=== PATIENT | female | born 1935 | race Caucasian/White ===

== ENCOUNTER 2018-09-07 01:33 | Emergency (ER) | payer MEDICARE ==
[2018-09-07 02:34] LABS: ABSOLUTE EOSINOPHILS # (AUTO) 0.1 10^3/uL (0.0-0.6); ABSOLUTE LYMPHOCYTES (AUTO) 1.4 10^3/uL (0.5-4.7); ABSOLUTE MONOCYTES (AUTO) 0.6 10^3/uL (0.1-1.4); ABSOLUTE NEUT (AUTO) 4.7 10^3/uL (1.7-8.2); BASOPHILS % (AUTO) 0.5 % (0-2); EOSINOPHILS % (AUTO) 1.7 % (0-6); HEMATOCRIT 38.2 % (36.0-47.0); HEMOGLOBIN 12.9 g/dL (12.0-15.5); LYMPHOCYTES % (AUTO) 20.4 % (13-45); MEAN CORPUSCULAR HEMOGLOBIN 32.5 pg (27.0-33.4); MEAN CORPUSCULAR HGB CONC 33.8 g/dL (32.0-36.0); MEAN CORPUSCULAR VOLUME 96 fl (80-97); MONOCYTES % (AUTO) 9.1 % (3-13); PLATELET COUNT 171 10^3/uL (150-450); RED BLOOD COUNT 3.98 10^6/uL (3.72-5.28); RED CELL DISTRIBUTION WIDTH 15.3 % (11.5-14.0); SEGMENTED NEUTROPHILS % (AUTO) 68.3 % (42-78); TOTAL CELLS COUNTED % (AUTO) 100 %; WHITE BLOOD COUNT 6.9 10^3/uL (4.0-10.5)
[2018-09-07 02:51] LABS: ALANINE AMINOTRANSFERASE 31 U/L (9-52); ALKALINE PHOSPHATASE 102 U/L (38-126); ANION GAP 11 (5-19); ASPARTATE AMINO TRANSFERASE 43 U/L (14-36); BILIRUBIN,DIRECT 0.3 mg/dL (0.0-0.4); BILIRUBIN,TOTAL 0.6 mg/dL (0.2-1.3); BLOOD UREA NITROGEN 25 mg/dL (7-20); CALCIUM 9.5 mg/dL (8.4-10.2); CARBON DIOXIDE 29 mmol/L (22-30); CHLORIDE 102 mmol/L (98-107); CREATINE KINASE 26 U/L (30-135); GLUCOSE 164 mg/dL (75-110); POTASSIUM 4.5 mmol/L (3.6-5.0); SODIUM 141.8 mmol/L (137-145); TOTAL PROTEIN 6.8 g/dL (6.3-8.2)
[2018-09-07 03:03] LABS: CREATINE KINASE MB 0.91 ng/mL (<4.55)
--- NOTE | 2018-09-07 03:03 | RADIOLOGY REPORT (SQ) ---
EXAM DESCRIPTION: XR CHEST 1 VIEW COMPLETED DATE/TME: 09/07/2018 02:27 CLINICAL HISTORY: 83 years, Female, pain along left chest wall COMPARISON: None. NUMBER OF VIEWS: 1 TECHNIQUE: Upright portable chest LIMITATIONS: None. FINDINGS: The heart size is normal. Atheromatous change thoracic aorta. Osteopenia. Calcified granuloma left upper lobe. Minor scarring left lung base. Lungs are otherwise clear. IMPRESSION: No acute cardiopulmonary process 2010 [employer] [facility] [employer]- All Rights Reserved
[2018-09-07 03:04] LABS: TROPONIN I < 0.012 ng/mL
--- NOTE | 2018-09-07 05:00 | ER Document Report ---
ED General - General Chief Complaint: Chest Pain Stated Complaint: ARM PAIN Time Seen by Provider: 09/07/18 02:11 Mode of Arrival: Wheelchair Information source: Patient, Relative TRAVEL OUTSIDE OF THE U.S. IN LAST 30 DAYS: No - HPI Patient complains to provider of: Shoulder pain Onset: Other - This 83-year-old female presents for evaluation of atraumatic left shoulder pain which began last night while at home. She notes that initially it hurt it on the outside of the shoulder and then moved up the back side of the shoulder towards the neck briefly since it has totally resolved without any intervention. She denies any fevers or chills trauma or injury preceding the event. She is never had anything like this in the past. Denies any history of heart attacks in the past. Denies any chest pain shortness of breath or palpitations. - Related Data Allergies/Adverse Reactions: ciprofloxacin [From Cipro] Allergy (Verified 09/07/18 01:37) codeine Allergy (Verified 09/07/18 01:37) levofloxacin [From Levaquin] Allergy (Verified 09/07/18 01:37) meperidine [From Demerol] Allergy (Verified 09/07/18 01:37) sulfamethoxazole [From Bactrim] Allergy (Verified 09/07/18 01:37) trimethoprim [From Bactrim] Allergy (Verified 09/07/18 01:37) Past Medical History - General Information source: Patient, Relative - Social History Smoking Status: Never Smoker Family History: None Patient has suicidal ideation: No Patient has homicidal ideation: No Renal/ Medical History: Denies: Hx Peritoneal Dialysis Review of Systems - Review of Systems -: Yes All other systems reviewed and negative Physical Exam - Vital signs Vitals: Resp Pulse Ox 17 93 09/07/18 02:12 09/07/18 02:12 - General General appearance: Appears well In distress: None - HEENT Head: Normocephalic Eyes: Normal Conjunctiva: Normal Cornea: Normal Extraocular movements intact: Yes Eyelashes: Normal Pupils: PERRL - Respiratory Respiratory status: No respiratory distress Chest status: Nontender Breath sounds: Normal Chest palpation: Normal - Cardiovascular Rhythm: Regular Heart sounds: Normal auscultation Murmur: No - Abdominal Inspection: Normal Distension: No distension Tenderness: Nontender - Back Back: Normal - Extremities General upper extremity: Normal inspection, Nontender, Normal ROM, Normal strength General lower extremity: Normal inspection, Nontender, Normal ROM, Normal strength - Neurological Neuro grossly intact: Yes Cognition: Normal Orientation: AAOx4 Percy Coma Scale Eye Opening: Spontaneous Colette Coma Scale Verbal: Oriented Colette Coma Scale Motor: Obeys Commands Percy Coma Scale Total: 15 Speech: Normal Cranial nerves: Normal Cerebellar coordination: Normal Motor strength normal: LUE, RUE, LLE, RLE - Psychological Associated symptoms: Normal affect Course - Re-evaluation Re-evalutation: 09/07/18 04:59 83-year-old female with a brief episode of left shoulder pain which spontaneously resolved yesterday. Currently she has no complaints and feels generally well. Her EKG through triage demonstrates that she has a sinus rhythm, left axis deviation with Q waves through the chest leads and poor R wave progression though there is nothing acute. We will obtain troponin x2 cardiac markers chest x-ray. We will continue to monitor in emergency department and reassess as necessary. 09/07/18 05:59 Patient pain-free with unremarkable workup, 2- troponins, unremarkable chest x- ray. You likely she was having arthritis type pain. Because of her well appearance no pain at this time and reassuring history believe she is likely safe for discharge home in the care of her daughter. We will plan for discharge home in the care of her daughter with return precautions and encouraged follow-up this week with her primary physician in the use of Tylenol as needed for shoulder pain. - Vital Signs Vital signs: Temp Pulse Resp BP Pulse Ox 16 131/57 H 91 L 09/07/18 05:02 09/07/18 05:02 09/07/18 05:02 - Laboratory Result Diagrams: 09/07/18 02:30 09/07/18 02:30 Laboratory results interpreted by me: 09/07/18 09/07/18 02:30 02:30 RDW 15.3 H BUN 25 H Est GFR (Non-Af Amer) 56 L Glucose 164 H AST 43 H Creatine Kinase 26 L Discharge - Discharge Clinical Impression: Shoulder pain, left Qualifiers: Chronicity: acute Qualified Code(s): M25.512 - Pain in left shoulder Condition: Good Disposition: HOME, SELF-CARE Instructions: Arthritis ([facility]) Additional Instructions: You were seen today in the emergency department for your shoulder pain. YOu had evaluation including electrolytes, chest x-ray, markers for damage to your heart. No cause for the pain in her shoulder was identified. It is likely this is related to your arthritis. Use Tylenol as necessary to help with your shoulder pain. Return to the emergency room in case of any worsening pain in your chest, shortness of breath, lightheadedness or other worsening symptoms otherwise follow-up with your primary physician this week for ongoing management. Referrals: LUCILLE MONTERROSO MD [Primary Care Provider] - Follow up as needed
[2018-09-07 06:32] VITALS: BP 109/86
--- NOTE | 2018-09-07 10:53 | EKG REPORT ---
SEVERITY:- ABNORMAL ECG - SINUS RHYTHM LEFT AXIS DEVIATION CONSIDER ANTEROSEPTAL INFARCT NON SPECIFIC IVCD : Confirmed by: Clinton Chang 07-Sep-2018 10:52:24
== END 2018-09-07 06:37 | disposition home or self-care (01) ==
LOC: ER 01:33
DX: M25.512 Pain in left shoulder (principal); Z88.1 Allergy status to other antibiotic agents; Z88.5 Allergy status to narcotic agent
CPT/HCPCS: 36415; 71045; 80053; 82550; 82553; 84484; 85025; 93005; 93010; 99285

== ENCOUNTER 2018-11-18 15:39 | Emergency (ER) | payer MEDICARE ==
--- NOTE | 2018-11-18 16:16 | ER Document Report ---
ED Medical Screen (RME) - General Chief Complaint: Abdominal Pain Stated Complaint: ABDOMINAL PAIN,NAUSEA,VOMITING Time Seen by Provider: 11/18/18 16:10 Primary Care Provider: LUCILLE MONTERROSO MD [Primary Care Provider] - Follow up as needed TRAVEL OUTSIDE OF THE U.S. IN LAST 30 DAYS: No - HPI Patient complains to provider of: Abdominal pain with nausea and vomiting Notes: 11/18/18 16:15 Patient is an 83-year-old female presenting to the emergency room via EMS for complaints of abdominal pain in the upper abdomen with nausea and vomiting that began approximately 6 hours prior to arrival, patient received Zofran in route and is not actively vomiting at this time RAPID MEDICAL EVALUATION DISCLOSURE I have seen this patient as part of a Rapid Medical Evaluation and, if applicable, placed any initially appropriate orders. The patient will be seen and fully evaluated, including a full history and physical exam, by a provider (in Main ED or Fast Track) when a room becomes available. - Related Data Allergies/Adverse Reactions: ciprofloxacin [From Cipro] Allergy (Verified 09/07/18 01:37) codeine Allergy (Verified 09/07/18 01:37) levofloxacin [From Levaquin] Allergy (Verified 09/07/18 01:37) meperidine [From Demerol] Allergy (Verified 09/07/18 01:37) sulfamethoxazole [From Bactrim] Allergy (Verified 09/07/18 01:37) trimethoprim [From Bactrim] Allergy (Verified 09/07/18 01:37) Past Medical History Renal/ Medical History: Denies: Hx Peritoneal Dialysis Physical Exam - Vital signs Vitals: Temp Pulse Resp BP Pulse Ox 97.6 F 58 L 16 109/69 94 11/18/18 15:50 11/18/18 15:50 11/18/18 15:50 11/18/18 15:50 11/18/18 15:50 Course - Vital Signs Vital signs: Temp Pulse Resp BP Pulse Ox 97.6 F 58 L 16 109/69 94 11/18/18 15:50 11/18/18 15:50 11/18/18 15:50 11/18/18 15:50 11/18/18 15:50 Doctor's Discharge - Discharge Referrals: LUCILLE MONTERROSO MD [Primary Care Provider] - Follow up as needed
[2018-11-18] MEDS ORDERED: METOCLOPRAMIDE HCL INJ/PF 10 MG/2 ML SDV IV ONE (16:29)
[2018-11-18 17:25] LABS: ABSOLUTE MONOCYTES (AUTO) 0.4 10^3/uL (0.1-1.4); BASOPHILS % (AUTO) 0.3 % (0-2); EOSINOPHILS % (AUTO) 0.1 % (0-6); HEMATOCRIT 37.5 % (36.0-47.0); HEMOGLOBIN 12.5 g/dL (12.0-15.5); LYMPHOCYTES % (AUTO) 8.2 % (13-45); MEAN CORPUSCULAR HGB CONC 33.2 g/dL (32.0-36.0); MEAN CORPUSCULAR VOLUME 99 fl (80-97); MONOCYTES % (AUTO) 2.8 % (3-13); PLATELET COUNT 210 10^3/uL (150-450); RED BLOOD COUNT 3.79 10^6/uL (3.72-5.28); RED CELL DISTRIBUTION WIDTH 14.3 % (11.5-14.0); SEGMENTED NEUTROPHILS % (AUTO) 88.6 % (42-78); TOTAL CELLS COUNTED % (AUTO) 100 %; WHITE BLOOD COUNT 12.4 10^3/uL (4.0-10.5)
[2018-11-18] MEDS ORDERED: NORMAL SALINE 1000 ML 1,000 ML IV ONE ×2 (18:30→23:46)
[2018-11-18] MEDS ORDERED: FENTANYL CITRATE INJ/PF 100 MCG/2 ML AMPUL IV ONE (18:30)
[2018-11-18 18:33] LABS: AMORPHOUS SEDIMENT,URINE TRACE /HPF; APPEARANCE,URINE TURBID; BILIRUBIN,URINE NEGATIVE (NEGATIVE); COLOR,URINE AMBER; GLUCOSE, URINE NEGATIVE (NEGATIVE); KETONES,URINE TRACE mg/dL (NEGATIVE); LEUKOCYTE ESTERASE,URINE NEGATIVE (NEGATIVE); NITRITE,URINE NEGATIVE (NEGATIVE); PROTEIN,URINE 100 mg/dL (NEGATIVE); URINE SPECIFIC GRAVITY 1.018
[2018-11-18 18:48] LABS: ALANINE AMINOTRANSFERASE 208 U/L (9-52); ALBUMIN 4.4 g/dL (3.5-5.0); ALKALINE PHOSPHATASE 151 U/L (38-126); ANION GAP 13 (5-19); ASPARTATE AMINO TRANSFERASE 525 U/L (14-36); BILIRUBIN,DIRECT 1.9 mg/dL (0.0-0.4); BILIRUBIN,TOTAL 2.5 mg/dL (0.2-1.3); BLOOD UREA NITROGEN 25 mg/dL (7-20); CALCIUM 9.6 mg/dL (8.4-10.2); CARBON DIOXIDE 29 mmol/L (22-30); CHLORIDE 101 mmol/L (98-107); GLUCOSE 242 mg/dL (75-110); LIPASE 105.5 U/L (23-300); POTASSIUM 4.6 mmol/L (3.6-5.0); SODIUM 142.6 mmol/L (137-145); TOTAL PROTEIN 7.2 g/dL (6.3-8.2)
[2018-11-18 19:33] LABS: VENOUS BLOOD BASE EXCESS -0.4 mmol/L; VENOUS BLOOD HCO3 25.9 mmol/L (20-32); VENOUS BLOOD PCO2 49.2 mmHg (35-63); VENOUS BLOOD PH 7.34 (7.30-7.42)
--- NOTE | 2018-11-18 20:22 | RADIOLOGY REPORT (SQ) ---
CT ABDOMEN PELVIS WITH IV CONTRAST HISTORY: Lower abdominal pain. COMPARISON: None. TECHNIQUE: CT scan of the abdomen and pelvis with IV contrast. This exam was performed according to our departmental dose-optimization program, which includes automated exposure control, adjustment of the mA and/or kV according to patient size and/or use of iterative reconstruction technique. FINDINGS: There are scattered atelectasis at the lung bases. No pleural or pericardial effusions are seen. Prior cholecystectomy with moderate CBD dilation. There is also intrahepatic ductal dilatation. Otherwise the liver, spleen, pancreas, adrenal glands, and kidneys are unremarkable. Simple renal cysts are seen in both kidneys. No obstructing urinary stones or hydronephrosis. The pelvic organs are also unremarkable. No small bowel obstruction. The appendix is normal. There are scattered colonic diverticula without surrounding inflammatory changes. No intraperitoneal free fluid or free air is seen. The aorta is normal caliber and contains atherosclerotic calcifications. There are mild degenerative changes of the spine. No body wall hernia is seen. IMPRESSION: 1. Normal appendix. 2. Diverticulosis without inflammatory changes.
[2018-11-18] MEDS ORDERED: PIPERACILLIN/TAZOBACTAM 3.375 GM VIAL IV ONE (20:36)
[2018-11-18] MEDS ORDERED: HYDROMORPHONE HCL INJ/PF 2 MG/ML AMPULE IV ONE (21:08)
--- NOTE | 2018-11-19 00:21 | RADIOLOGY REPORT (SQ) ---
US ABDOMEN LIMITED HISTORY: Right upper quadrant pain. COMPARISON: None. TECHNIQUE: Grayscale and color Doppler imaging of the right upper quadrant was performed. FINDINGS: The liver has normal echotexture without focal lesion identified. The main portal vein has normal hepatopetal flow. There has been a prior cholecystectomy. CBD is dilated measuring 1.5 cm which is likely postsurgical sequela. The pancreas is unremarkable. No hydronephrosis or shadowing renal stones are identified. The right kidney measures 8.6 cm in length. The visualized portions of the IVC and aorta are patent. IMPRESSION: Prior cholecystectomy with dilated CBD which is likely postsurgical sequela. No echogenic stones are seen in the CBD although if there is high clinical concern, MRCP may be performed.
--- NOTE | 2018-11-19 00:51 | ER Document Report ---
ED General - General Chief Complaint: Abdominal Pain Stated Complaint: ABDOMINAL PAIN,NAUSEA,VOMITING Time Seen by Provider: 11/18/18 16:10 Primary Care Provider: LUCILLE MONTERROSO MD [Primary Care Provider] - Follow up as needed Mode of Arrival: Medic Information source: Patient, Relative, Emergency Med Personnel TRAVEL OUTSIDE OF THE [place] IN LAST 30 DAYS: No - HPI Patient complains to provider of: pain and nausea Onset: Other - This 83-year-old female with a history of chill fibrillation as well as hypertension that presents for evaluation of abdominal pain, low back pain and persistent nausea which started today while she was at home. Nothing seemed to make her symptoms any better, time seems to be making them worse. She is not take anything to try and help with it. She is never had anything like this in the past. - Related Data Allergies/Adverse Reactions: ciprofloxacin [From Cipro] Allergy (Verified 11/18/18 19:04) codeine Allergy (Verified 11/18/18 19:04) levofloxacin [From Levaquin] Allergy (Verified 11/18/18 19:04) meperidine [From Demerol] Allergy (Verified 11/18/18 19:04) sulfamethoxazole [From Bactrim] Allergy (Verified 11/18/18 19:04) trimethoprim [From Bactrim] Allergy (Verified 11/18/18 19:04) Past Medical History - General Information source: Patient, Relative - Social History Smoking Status: Never Smoker Chew tobacco use (# tins/day): No Frequency of alcohol use: hx of alcoholism Drug Abuse: None Family History: None Patient has suicidal ideation: No Patient has homicidal ideation: No Endocrine Medical History: Reports: Hx Diabetes Mellitus Type 2 Renal/ Medical History: Denies: Hx Peritoneal Dialysis Review of Systems - Review of Systems -: Yes All other systems reviewed and negative Physical Exam - Vital signs Vitals: Temp Pulse Resp BP Pulse Ox 97.6 F 58 L 16 109/69 94 11/18/18 15:50 11/18/18 15:50 11/18/18 15:50 11/18/18 15:50 11/18/18 15:50 - General General appearance: Anxious, Lethargic In distress: Mild - HEENT Head: Normocephalic Eyes: Normal Conjunctiva: Normal Cornea: Normal Extraocular movements intact: Yes Eyelashes: Normal Pupils: PERRL - Respiratory Respiratory status: No respiratory distress Chest status: Nontender Breath sounds: Normal Chest palpation: Normal - Cardiovascular Rhythm: Regular Heart sounds: Normal auscultation - Abdominal Inspection: Obese Distension: Distended Tenderness: Tender - Back Back: Normal - Extremities General upper extremity: Normal inspection, Nontender, Normal ROM, Normal streng th General lower extremity: Normal inspection, Nontender, Normal ROM, Normal strength - Neurological Neuro grossly intact: Yes Cognition: Normal Orientation: AAOx4 Colette Coma Scale Eye Opening: Spontaneous Colette Coma Scale Verbal: Oriented Colette Coma Scale Motor: Obeys Commands [place] Coma Scale Total: 15 Speech: Normal Cranial nerves: Normal Motor strength normal: LUE, RUE, LLE, RLE Course - Re-evaluation Re-evalutation: 83-year-old female presents for evaluation of abdominal pain nausea and back pain. Initial presentation she appeared in moderate distress, she was ashen, diaphoretic. Broad workup was undertaken for potential underlying septic source, urine was obtained with a straight cath almost immediately, on initial evaluation of the urine appeared profoundly contaminated, it appeared in similar color to apple cider. A brief bedside ultrasound was performed to assess this patient's potential for urine retention which was negative. The patient's initial lab demonstrated leukocytosis with a new hyperbilirubinemia. Given her previous history of a cholecystectomy had a concern for potential underlying abdominal injury accounting for her elevated lactate. Initiated fluid resuscitation for this patient. Administered Zosyn for this patient. Patient underwent CT imaging of the abdomen and pelvis, CT imaging of the abd omen and pelvis demonstrated that this patient had what appears to be elevated and dilated common bile duct. Her lipase is normal at this time while her transaminases are elevated. Because of the concern for potential stone in the common bile duct obtain an ultrasound. Ultrasound of this patient's common bile duct demonstrated what appeared to be dilation 1.5 cm. I repeated her liver function tests given that she had been in the hospital now for approximately 6 hours. Her bilirubin continued to be elevated. Contacted the on-call back tender pulp drier Dr. WILLIAM ERVIN who notes that he is unable to perform an ERCP and he is concerned that she has a retained stone with an obstructive pattern. Because the concern for this patient's potential obstruction stone contacted [facility] in [place], they note that they are on full diversion at this time. Contacted [facility] in [place], they note that they are on full medical diversion at this time. Contacted [facility] they note that they are currently able to accept patients, contacted the hospitalist Dr. Bermudez that agrees to accept this patient in transport. At the time of transport this patient remained hemodynamically stable. - Vital Signs Vital signs: Temp Pulse Resp BP Pulse Ox 97.6 F 58 L 20 106/53 L 92 11/18/18 15:50 11/18/18 15:50 11/19/18 02:30 11/19/18 02:30 11/19/18 02:30 - Laboratory Result Diagrams: 11/18/18 16:47 11/19/18 00:49 Laboratory results interpreted by me: 11/18/18 11/18/18 11/18/18 16:47 18:05 18:20 WBC 12.4 H MCV 99 H RDW 14.3 H Seg Neutrophils % 88.6 H Lymphocytes % 8.2 L Monocytes % 2.8 L Absolute Neutrophils 11.0 H BUN 25 H Glucose 242 H Lactic Acid Total Bilirubin 2.5 H Direct Bilirubin 1.9 H AST 525 H ALT 208 H Alkaline Phosphatase 151 H Total Protein Albumin Urine Protein 100 H Urine Ketones TRACE H Urine Blood MODERATE H Urine Urobilinogen 4.0 H Urine Ascorbic Acid 40 H 11/18/18 11/18/18 11/19/18 19:15 20:49 00:49 WBC MCV RDW Seg Neutrophils % Lymphocytes % Monocytes % Absolute Neutrophils BUN 22 H Glucose 160 H Lactic Acid 4.1 H 4.0 H Total Bilirubin 2.8 H Direct Bilirubin 2.2 H AST 407 H ALT 237 H Alkaline Phosphatase Total Protein 5.3 L Albumin 3.1 L Urine Protein Urine Ketones Urine Blood Urine Urobilinogen Urine Ascorbic Acid Discharge - Discharge Clinical Impression: Hyperbilirubinemia, Common bile duct dilatation Abdominal pain Qualifiers: Abdominal location: unspecified location Qualified Code(s): R10.9 - Unspecified abdominal pain Back pain Qualifiers: Back pain location: low back pain Chronicity: unspecified Back pain laterality: unspecified Sciatica presence: unspecified whether sciatica present Qualified Code(s): M54.5 - Low back pain Condition: Stable Disposition: [facility] Referrals: LUCILLE MONTERROSO MD [Primary Care Provider] - Follow up as needed
[2018-11-19 01:15] LABS: ALANINE AMINOTRANSFERASE 237 U/L (9-52); ALBUMIN 3.1 g/dL (3.5-5.0); ALKALINE PHOSPHATASE 113 U/L (38-126); ANION GAP 6 (5-19); ASPARTATE AMINO TRANSFERASE 407 U/L (14-36); BILIRUBIN,DIRECT 2.2 mg/dL (0.0-0.4); BILIRUBIN,TOTAL 2.8 mg/dL (0.2-1.3); BLOOD UREA NITROGEN 22 mg/dL (7-20); CALCIUM 8.6 mg/dL (8.4-10.2); CARBON DIOXIDE 29 mmol/L (22-30); CHLORIDE 105 mmol/L (98-107); GLUCOSE 160 mg/dL (75-110); TOTAL PROTEIN 5.3 g/dL (6.3-8.2)
[2018-11-19 01:58] VITALS: BP 106/53
--- NOTE | 2018-11-19 08:11 | EKG REPORT ---
SEVERITY:- ABNORMAL ECG - ATRIAL FIBRILLATION, V-RATE 72-79 NONSPECIFIC INTRAVENTRICULAR CONDUCTION DELAY POOR R WAVE PROGRESSION ANTERIOR LEADS : Confirmed by: Dago Vang MD 19-Nov-2018 08:11:29
== END 2018-11-19 03:07 | disposition short-term general hospital (02) ==
LOC: ER 15:39
DX: E80.6 Other disorders of bilirubin metabolism (principal); K83.8 Other specified diseases of biliary tract; R10.9 Unspecified abdominal pain; M54.5 Low back pain; R11.0 Nausea; E11.9 Type 2 diabetes mellitus without complications; Z88.3 Allergy status to other anti-infective agents; Z88.6 Allergy status to analgesic agent
CPT/HCPCS: 93005; 99285; 96361; 96375; 96365; 36415; 87040; 87086; 83605 ×2; 83690; 85025; 87077; 87088; 80053; 81001; 84484; 87186; 82803; 76705; 74177; 93010; J3010; J2765; J1170; J7030; J2543

== ENCOUNTER 2018-11-29 17:12 | Emergency (ER) | payer MEDICARE ==
[2018-11-29] MEDS ORDERED: VALACYCLOVIR HCL 500 MG TABLET PO ONE (19:12)
--- NOTE | 2018-11-29 19:12 | ER Document Report ---
ED General - General Chief Complaint: Abdominal Pain Stated Complaint: POSSIBLE ALLERIGIC REACTION Time Seen by Provider: 11/29/18 19:05 Primary Care Provider: LUCILLE MONTERROSO MD [Primary Care Provider] - Follow up as needed Mode of Arrival: Wheelchair Information source: Patient Notes: 83-year-old female presents emergency department with complaints of a rash on her abdomen. Pain. Daughter saw a rash to the area. She states that some areas have blisters others are more of a scab sensation. She states that the patient just was discharged from the hospital 2 weeks ago after having a bile duct stent placed. Patient denies any fever, chills, nausea, vomiting, diarrhea, constipation. TRAVEL OUTSIDE OF THE U[place] IN LAST 30 DAYS: No - HPI Onset: This morning Onset/Duration: Constant Quality of pain: Burning Severity: Mild Associated symptoms: None Exacerbated by: Denies Relieved by: Denies Similar symptoms previously: No Recently seen / treated by doctor: No - Related Data Allergies/Adverse Reactions: codeine Allergy (Mild, Verified 11/29/18 19:07) ciprofloxacin [From Cipro] Allergy (Verified 11/29/18 19:07) levofloxacin [From Levaquin] Allergy (Verified 11/29/18 19:07) meperidine [From Demerol] Allergy (Verified 11/29/18 19:07) sulfamethoxazole [From Bactrim] Allergy (Verified 11/29/18 19:07) trimethoprim [From Bactrim] Allergy (Verified 11/29/18 19:07) Past Medical History - General Information source: Patient - Social History Smoking Status: Former Smoker Chew tobacco use (# tins/day): No Frequency of alcohol use: None Drug Abuse: None Family History: None Patient has suicidal ideation: No Patient has homicidal ideation: No - Past Medical History Cardiac Medical History: Reports: Hx Atrial Fibrillation, Hx Hypercholeste rolemia, Hx Hypertension Endocrine Medical History: Reports: Hx Diabetes Mellitus Type 2 Renal/ Medical History: Denies: Hx Peritoneal Dialysis Past Surgical History: Reports: Hx Abdominal Surgery - gallstones removed from bile duct, Hx Cholecystectomy, Hx Hysterectomy, Hx Orthopedic Surgery - tumor removed from left shoulder/neck area Review of Systems - Review of Systems Constitutional: No symptoms reported EENT: No symptoms reported Cardiovascular: No symptoms reported Respiratory: No symptoms reported Gastrointestinal: No symptoms reported Genitourinary: No symptoms reported Female Genitourinary: No symptoms reported Musculoskeletal: No symptoms reported Skin: Change in color, Lesions Hematologic/Lymphatic: No symptoms reported Neurological/Psychological: No symptoms reported -: Yes All other systems reviewed and negative Physical Exam - Vital signs Vitals: Temp Pulse Resp BP Pulse Ox 97.7 F 69 24 H 139/49 H 95 11/29/18 17:45 11/29/18 17:45 11/29/18 17:45 11/29/18 17:45 11/29/18 17:45 - Notes Notes: PHYSICAL EXAMINATION: GENERAL: Well-appearing, well-nourished and in no acute distress. HEAD: Atraumatic, normocephalic. EYES: Pupils equal round and reactive to light, extraocular movements intact, conjunctiva are normal. ENT: Nares patent, oropharynx clear without exudates. Moist mucous membranes. NECK: Normal range of motion, supple without lymphadenopathy LUNGS: Breath sounds clear to auscultation bilaterally and equal. No wheezes rales or rhonchi. HEART: Regular rate and rhythm without murmurs ABDOMEN: Soft, nontender, nondistended abdomen. No guarding, no rebound. No masses appreciated. Female : deferred Musculoskeletal: Normal range of motion, no pitting or edema. No cyanosis. NEUROLOGICAL: Cranial nerves grossly intact. Normal speech, normal gait. Normal sensory, motor exams PSYCH: Normal mood, normal affect. SKIN: Warm, dry, fluid filled vesicles in a linear pattern following a dermatome inthe RLQ. Does not cross midline. Course - Vital Signs Vital signs: Temp Pulse Resp BP Pulse Ox 97.7 F 69 24 H 139/49 H 95 11/29/18 17:45 11/29/18 17:45 11/29/18 17:45 11/29/18 17:45 11/29/18 17:45 Discharge - Discharge Clinical Impression: Shingles Qualifiers: Herpes zoster complications: without complications Qualified Code(s): B02.9 - Zoster without complications Condition: Good Disposition: HOME, SELF-CARE Instructions: Shingles ([facility]) Prescriptions: Valacyclovir HCl [Valtrex 500 Mg Tablet] 1,000 mg PO TID #21 tablet Referrals: LUCILLE MONTERROSO MD [Primary Care Provider] - Follow up as needed
[2018-11-29 19:28] VITALS: BP 140/62
== END 2018-11-29 19:26 | disposition home or self-care (01) ==
LOC: ER 17:12
DX: B02.9 Zoster without complications (principal); R10.9 Unspecified abdominal pain; R21 Rash and other nonspecific skin eruption; Z87.891 Personal history of nicotine dependence; I10 Essential (primary) hypertension; E11.9 Type 2 diabetes mellitus without complications
CPT/HCPCS: 99283; A9270

== ENCOUNTER 2019-05-14 06:45 | Day surgery (SDC) | payer MEDICARE ==
[~2019-05-14 06:45] MED LIST: KETOROLAC TROMETHAMINE 0.45% 4 DROP/0.4 ML DROPERETTE OD PRN
[2019-05-14] MEDS: TETRACAINE HCL 0.5% OPH SOLN 4 ML OD PRN ×4 (07:06→07:49)
[2019-05-14] MEDS: TROPICAMIDE 1% OPH SOLN 3 ML OD PRN ×3 (07:07→07:32)
[2019-05-14] MEDS: CYCLOPENTOLATE 0.2%/PHENYLEPHRINE 1% OPH SOLN 2 ML OD PRN ×3 (07:07→07:32)
[2019-05-14] MEDS: BESIFLOXACIN HCL 0.6% OPH SUSP 5 ML BOTTLE OD PRN ×4 (07:07→08:11)
[2019-05-14] MEDS ORDERED: MIDAZOLAM 2 MG/2 ML INJ ONE (07:52)
[2019-05-14] MEDS: LIDOCAINE 1%/PHENYLEPHRINE 1.5% 1 ML VIAL ONE ×2 (08:00)
[2019-05-14] MEDS: EPINEPHRINE INJ/PF 1 MG/1 ML AMPULE ONE ×2 (08:00)
[2019-05-14] MEDS: CHONDR SU A NA/HYALUR INTRAOC KIT (SURGICARE) ONE ×2 (08:11)
[2019-05-14] MEDS: DORZOLAMIDE HCL 2%/TIMOLOL MALEAT 0.5% OPH SOLN 10 ML OD PRN ×2 (08:11)
--- NOTE | 2019-05-14 22:26 | [facility] OPERATIVE REPORT E ---
[facility] Operative Report NAME: MARVIN LAGUNA AGE: 83Y DATE OF SURGERY: 05/14/2019 ROOM: PREOPERATIVE DIAGNOSIS: CATARACT, RIGHT EYE. POSTOPERATIVE DIAGNOSIS: CATARACT, RIGHT EYE. OPERATION: Cataract extraction with insertion of an IOL of the right eye. SURGEON: DEREK PETERSON M.D. ANESTHESIA: Topical. PROCEDURE: After obtaining appropriate consent, the patient's right eye was prepped and draped in sterile fashion as well as the surgeon in a sterile manner and cataract surgery was started. First a paracentesis blade was used to make a side-port incision. Viscoelastic was used to inflate the anterior chamber. Next a 2.4 mm incision was made with a 2.4 mm blade, clear corneal temporally. A continuous capsulorrhexis was made using a cystotome and Utrata forceps. Following this hydrodissection was carried out to make the lens fully loose and mobile and it was rotated 90 degrees. Following this, a [id number] technique was used to phacoemulsify the lens with a CDE of 18.86. The remaining cortex was removed with irrigation/aspiration. Provisc was instilled into the capsular bag to inflate the bag. A SN60WF, 21.0 diopter lens was placed. The remaining viscoelastic material was removed with irrigation/aspiration. Following this, the incision was found to be watertight. Besivance was instilled into the eye and a protective shield was placed over the eye. The patient returned to the postoperative recovery in stable condition. DICTATING PHYSICIAN: DEREK PETERSON M.D. [id number] PHY#: [id number] ID: [id number] JOB#: [id number] ACCT: [id number] cc:DEREK PETERSON M.D. >
--- NOTE | 2019-05-14 22:30 | [facility] DISCHARGE SUMMARY E ---
[facility] Discharge Summary NAME: MARVIN LAGUNA AGE: 83Y ADMITTED: 05/14/2019 DISCHARGED: 05/14/2019 HOSPITAL COURSE: This is an 83-year-old female who underwent cataract extraction of the right eye. DIAGNOSIS: CATARACT, RIGHT EYE. She underwent surgery because she was having difficulty seeing road signs. DISCHARGE INSTRUCTIONS: She should be on a regular diet. No bending at her waist, no heavy lifting. She should use her moxifloxacin, Predforte, and Prolensa at 3 p.m. and 8 p.m. and sleep with a rigid shield. I will see her for her 1 day postoperative tomorrow. DICTATING PHYSICIAN: DEREK PETERSON M.D. [id number] PHY#: [id number] ID: [id number] JOB#: [id number] ACCT: [id number] cc:DEREK PETERSON M.D. >
== END 2019-05-14 09:15 | disposition home or self-care (01) ==
LOC: SC 06:45
PROVIDERS: ATTEND Internal Medicine
DX: H25.811 Combined forms of age-related cataract, right eye (principal); E11.9 Type 2 diabetes mellitus without complications; I10 Essential (primary) hypertension; I48.91 Unspecified atrial fibrillation; Z87.891 Personal history of nicotine dependence; Z79.01 Long term (current) use of anticoagulants; Z79.84 Long term (current) use of oral hypoglycemic drugs; Z85.828 Personal history of other malignant neoplasm of skin
CPT/HCPCS: 66984; 82962; J2250; J3490 ×2; A9270; J0171; J2370; 142; V2632

== ENCOUNTER 2019-06-11 09:23 | Day surgery (SDC) | payer MEDICARE ==
[~2019-06-11 09:23] MED LIST changes: +CHONDR SU A NA/HYALUR INTRAOC KIT (SURGICARE) ONE; +EPINEPHRINE INJ/PF 1 MG/1 ML AMPULE ONE; -KETOROLAC TROMETHAMINE 0.45% 4 DROP/0.4 ML DROPERETTE OD PRN; +KETOROLAC TROMETHAMINE 0.45% 4 DROP/0.4 ML DROPERETTE OS PRN; +LIDOCAINE 1%/PHENYLEPHRINE 1.5% 1 ML VIAL ONE; +MIDAZOLAM 2 MG/2 ML INJ ONE
[2019-06-11] MEDS: TROPICAMIDE 1% OPH SOLN 3 ML OS PRN ×3 (10:25→10:45)
[2019-06-11] MEDS: TETRACAINE HCL 0.5% OPH SOLN 4 ML OS PRN ×3 (10:25→10:59)
[2019-06-11] MEDS: BESIFLOXACIN HCL 0.6% OPH SUSP 5 ML BOTTLE OS PRN ×4 (10:25→11:22)
[2019-06-11] MEDS: CYCLOPENTOLATE 0.2%/PHENYLEPHRINE 1% OPH SOLN 2 ML OS PRN ×3 (10:25→10:45)
[2019-06-11] MEDS: DORZOLAMIDE HCL 2%/TIMOLOL MALEAT 0.5% OPH SOLN 10 ML OS PRN ×2 (11:12→11:22)
[2019-06-11] MEDS ORDERED: TOBRAMYCIN SULFATE/DEXAMETH OPH OINTMENT 3.5 GM ONE (11:17)
--- NOTE | 2019-06-11 13:43 | PDOC DISCHARGE SUMMARY ---
Discharge Summary-[facility] Discharge Summary: DATE OF SURGERY: 06/11/2019 PREOPERATIVE DIAGNOSIS: Cataract, left eye POSTOPERATIVE DIAGNOSIS: Cataract, left eye OPERATION: Cataract extraction with insertion of an IOL of the left eye. SURGEON: Monico Romero MD ANESTHESIA: Topical The patient underwent surgery because they are having [blurred vision when looking at cars]. They're to be on a regular diet, no bending at their waist, and no heavy lifting. They should use the prescribed antibiotic, NSAID, and steroid at 3 PM and 8 PM. They should sleep with a rigid shield and I will see them for 1 day postoperative tomorrow.
--- NOTE | 2019-06-11 13:43 | Operative Report ---
Operative Report-[facility] Operative Report: DATE OF SURGERY: 06/11/2019 PREOPERATIVE DIAGNOSIS: Cataracts, left eye POSTOPERATIVE DIAGNOSIS: Cataract, left eye OPERATION: Cataract extraction with insertion of an IOL of the left eye. Intraocular Lens Model: [20.5 sn60wf] SURGEON: Monico Romero MD ANESTHESIA: Topical PROCEDURE: After obtaining appropriate consent, the patient's left eye was prepped and draped in a sterile fashion as well as the surgeon in the sterile manner and cataract surgery was started. First a paracentesis blade was used to make a side-port incision. Viscoelastic was used to inflate the anterior chamber. Next a 2.4 mm incision was made with a 2.4 mm blade, clear corneal temporarily. A continuous capsulorrhexis was made using a cystotome and Utrata forceps. Following this hydrodissection was carried out to make commands fully loose and mobile and it was rotated 90 degrees. Following this, a divide and conquer technique was used to phacoemulsify the lens. The remaining cortex was removed with an irrigation/aspiration. Provisc was instilled into the capsular bag to inflate the bag.The intracular lens was placed. The remaining viscoelastic material was removed with irrigation/aspiration. Following this, the incision was found to be watertight. Besivance and Cosopt was instilled into the eye and a protective shield was placed over the eye. The patient was turned to the postoperative recovery in a stable condition.
== END 2019-06-11 12:50 | disposition home or self-care (01) ==
LOC: SC 09:23
PROVIDERS: ATTEND Internal Medicine
DX: H25.812 Combined forms of age-related cataract, left eye (principal); Z96.1 Presence of intraocular lens; I10 Essential (primary) hypertension; E11.9 Type 2 diabetes mellitus without complications; D64.9 Anemia, unspecified; I20.9 Angina pectoris, unspecified; Z85.828 Personal history of other malignant neoplasm of skin; R01.1 Cardiac murmur, unspecified
CPT/HCPCS: 66984; 82962; 80053; V2632; J2250; J3490 ×3; A9270; J0171; J2370; 142